=== PATIENT | female | born 1975 | race Hispanic/Latino ===

== ENCOUNTER 2017-05-02 18:20 | Emergency (ER) | payer SELFPAY ==
[2017-05-03] MEDS ORDERED: TORADOL IM ONE (00:07)
--- NOTE | 2017-05-03 00:51 | Emergency Department Report ---
ED Back Pain/Injury HPI - General Chief Complaint: Fall Stated Complaint: PELVIC PAIN Time Seen by Provider: 05/02/17 22:49 Source: patient Limitations: No Limitations - History of Present Illness Initial Comments: This is a 41-year-old female nontoxic, well nourished in appearance, no acute signs of distress presents to the ED with c/o of low back pain and bilateral hip pain status post fall. Patient stated 3 days ago she was walking down 4 stairs and trippped and landed on her lower back. Patient denies any trauma to the hips but stated as hip pain status post fall. Patient denies any bladder or bowel instability. Patient denies any dysuria, polyuria, hematuria, flank pain, fever, chills, nausea, vomiting, chest pain or shortness of breath. Patient denies any numbness or tingling. Patient states allergies to NSAIDs but stated he has taken Toradol with no allergies. Past medical history includes psychiatric, neuropathy, sciatica, and thyroid abnormalities. MD Complaint: back pain -: days(s) (3) Similar Symptoms Previously: Yes Place: home Radiation: none Severity: mild Severity scale (0 -10): 8 Quality: aching Consistency: constant Improves With: immobilization, supine, sitting upright Worsens With: movement, walking Context: fall Associated Symptoms: denies other symptoms. denies: confusion, weakness, chest pain, numbness, difficulty walking, cough, difficulty urinating, diaphoresis, incontinence, fever/chills, constipation, headaches, abdominal pain, loss of appetite, malaise, nausea/vomiting, rash, seizure, shortness of breath, syncope - Related Data Home Medications Medication Instructions Recorded Confirmed Last Taken Carisoprodol [Soma] 350 mg PO PRN PRN 09/02/13 09/02/13 08/30/13 Citalopram [celeXA] 20 mg PO QDAY 09/02/13 09/02/13 09/01/13 Levothyroxine [Synthroid] 50 mcg PO DAILY 09/02/13 09/02/13 09/01/13 Previous Rx's Medication Instructions Recorded Last Taken Type Nitrofurantoin [place]/M-Cryst 100 mg PO Q12HR 14 Days capsule 09/02/13 Unknown Rx [Macrobid] Citalopram [celeXA] 20 mg PO QDAY #30 tablet 10/20/13 Unknown Rx Cyclobenzaprine [Flexeril 10mg] 10 mg PO Q8H PRN #21 tablet 10/20/13 Unknown Rx Levothyroxine [Synthroid] 75 mcg PO QAM #90 tablet 10/20/13 Unknown Rx traMADol [Ultram 50 MG tab] 50 mg PO Q8H PRN #30 tablet 11/10/13 Unknown Rx Cyclobenzaprine [Flexeril 10mg] 10 mg PO TID PRN #20 tablet 12/09/13 Unknown Rx HYDROcodone/APAP 5-325 [Bromide 1 each PO Q6HR PRN #14 tablet 12/09/13 Unknown Rx 5/325] Levofloxacin [Levaquin] 250 mg PO QDAY #2 tablet 08/04/15 Unknown Rx Acetaminophen [Tylenol Arthritis] 650 mg PO Q8H PRN #30 tablet.er 05/03/17 Unknown Rx Cyclobenzaprine [Flexeril] 10 mg PO QHS PRN #7 tablet 05/03/17 Unknown Rx Allergies Allergy/AdvReac Type Severity Reaction Status Date / Time NSAIDS (Non-Steroidal Allergy Nausea Verified 09/02/13 01:54 Anti-Inflamma ED Review of Systems ROS: Stated complaint: PELVIC PAIN Other details as noted in HPI Constitutional: denies: chills, fever Eyes: denies: eye pain, eye discharge, vision change ENT: denies: ear pain, throat pain Respiratory: denies: cough, shortness of breath, wheezing Cardiovascular: denies: chest pain, palpitations Endocrine: no symptoms reported Gastrointestinal: denies: abdominal pain, nausea, diarrhea Genitourinary: denies: urgency, dysuria, discharge Musculoskeletal: back pain. denies: joint swelling, arthralgia Skin: denies: rash, lesions Neurological: denies: headache, weakness, paresthesias Psychiatric: denies: anxiety, depression Hematological/Lymphatic: denies: easy bleeding, easy bruising ED Past Medical Hx - Past Medical History Hx Psychiatric Treatment: Yes (paranoid schitzophrenia) Additional medical history: neuropathy, PUD, sciatica, thyroid problems - Surgical History Hx Cholecystectomy: Yes Additional Surgical History: tubal ligation - Social History Smoking Status: Current Every Day Smoker Substance Use Type: None - Medications Home Medications: Home Medications Medication Instructions Recorded Confirmed Last Taken Type Carisoprodol [Soma] 350 mg PO PRN PRN 09/02/13 09/02/13 08/30/13 History Citalopram [celeXA] 20 mg PO QDAY 09/02/13 09/02/13 09/01/13 History Levothyroxine [Synthroid] 50 mcg PO DAILY 09/02/13 09/02/13 09/01/13 History Nitrofurantoin [place]/M-Cryst 100 mg PO Q12HR 14 Days capsule 09/02/13 Unknown Rx [Macrobid] Citalopram [celeXA] 20 mg PO QDAY #30 tablet 10/20/13 Unknown Rx Cyclobenzaprine [Flexeril 10mg] 10 mg PO Q8H PRN #21 tablet 10/20/13 Unknown Rx Levothyroxine [Synthroid] 75 mcg PO QAM #90 tablet 10/20/13 Unknown Rx traMADol [Ultram 50 MG tab] 50 mg PO Q8H PRN #30 tablet 11/10/13 Unknown Rx Cyclobenzaprine [Flexeril 10mg] 10 mg PO TID PRN #20 tablet 12/09/13 Unknown Rx HYDROcodone/APAP 5-325 [Bromide 1 each PO Q6HR PRN #14 tablet 12/09/13 Unknown Rx 5/325] Levofloxacin [Levaquin] 250 mg PO QDAY #2 tablet 08/04/15 Unknown Rx Acetaminophen [Tylenol Arthritis] 650 mg PO Q8H PRN #30 tablet.er 05/03/17 Unknown Rx Cyclobenzaprine [Flexeril] 10 mg PO QHS PRN #7 tablet 05/03/17 Unknown Rx ED Physical Exam - General Limitations: No Limitations General appearance: alert, in no apparent distress - Head Head exam: Present: atraumatic, normocephalic - Eye Eye exam: Present: normal appearance, PERRL, EOMI Pupils: Present: normal accommodation - ENT ENT exam: Present: normal exam, normal orophraynx, mucous membranes moist, TM's normal bilaterally, normal external ear exam - Neck Neck exam: Present: normal inspection, full ROM. Absent: tenderness, meningismus, lymphadenopathy, thyromegaly - Respiratory Respiratory exam: Present: normal lung sounds bilaterally. Absent: respiratory distress, wheezes, rales, rhonchi, stridor, chest wall tenderness, accessory muscle use, decreased breath sounds, prolonged expiratory - Cardiovascular Cardiovascular Exam: Present: regular rate, normal rhythm, normal heart sounds. Absent: bradycardia, tachycardia, irregular rhythm, systolic murmur, diastolic murmur, rubs, gallop - GI/Abdominal GI/Abdominal exam: Present: soft, normal bowel sounds. Absent: distended, tenderness, guarding, rebound, rigid, diminished bowel sounds - Rectal Rectal exam: Present: deferred - Extremities Exam Extremities exam: Present: normal inspection, full ROM, normal capillary refill. Absent: tenderness, pedal edema, joint swelling, calf tenderness - Expanded Lower Extremity Exam Left Hip exam: Present: normal inspection (bilateral exam), full ROM, external rotation, internal rotation, pelvic stability. Absent: tenderness, swelling, abrasion, laceration, ecchymosis, deformity, crepidus, dislocation, erythema, shortening Upper Leg exam: Present: normal inspection (bilateral exam), full ROM. Absent: tenderness, swelling, abrasion, laceration, ecchymosis, deformity, crepidus, dislocation, erythema Knee exam: Present: normal inspection (bilateral exam), full ROM, full knee extension. Absent: tenderness, swelling, abrasion, ecchymosis, deformity, crepidus, dislocation, erythema, effusion, pain w/ pronation/supination, posterior draw sign, pain/laxity with valgus, pain/laxity with varus Lower Leg exam: Present: normal inspection (bilateral exam), full ROM. Absent: tenderness, swelling, abrasion, laceration, ecchymosis, deformity, crepidus, dislocation, erythema, palpable cord, Abhishek's sign Ankle exam: Present: normal inspection (bilateral exam), full ROM. Absent: tenderness, swelling, abrasion, laceration, ecchymosis, deformity, crepidus, dislocation, erythema, anterior draw sign Foot/Toe exam: Present: normal inspection (bilateral exam), full ROM. Absent: tenderness, swelling, abrasion, laceration, ecchymosis, deformity, crepidus, dislocation, erythema, amputation, puncture wound, foreign body, calcaneal tenderness, tenderness at base of 5th metatarsal, nail avulsion, subungual hematoma Neuro vascular tendon exam: Present: no vascular compromise (bilateral exam). Absent: pulse deficit, abnormal cap refill, motor deficit, sensory deficit, tendon deficit, extremity cold to touch, pallor, abnormal 2-point discrimination , decreased fine/light touch, foot drop, peroneal nerve deficit, significant pain with passive ROM of distal joint Gait: Positive: observed and normal (bilateral exam) - Back Exam Back exam: Present: normal inspection, full ROM, paraspinal tenderness (lumbar region). Absent: tenderness, CVA tenderness (R), CVA tenderness (L), muscle spasm, vertebral tenderness, rash noted - Expanded Back Exam Expanded Back exam: Present: normal rectal tone. Absent: saddle anesthesia Back exam: Negative Straight Leg Raising: Left, Right - Neurological Exam Neurological exam: Present: alert, oriented X3, CN II-XII intact, normal gait, reflexes normal - Psychiatric Psychiatric exam: Present: normal affect, normal mood - Skin Skin exam: Present: warm, dry, intact, normal color. Absent: rash ED Course Vital Signs 05/02/17 05/03/17 21:12 02:00 Temperature 97.8 F 98.4 F Pulse Rate 83 72 Respiratory 20 20 Rate Blood Pressure 98/65 Blood Pressure 114/63 [Right] O2 Sat by Pulse 99 98 Oximetry - Reevaluation(s) Reevaluation #1: 05/03/17 00:51 Patient is speaking in full sentences with no signs of distress noted. ED Medical Decision Making - Medical Decision Making This is a 41-year-old presents with low back strain and bilateral hip pain. Patient is stable and was examined by me. X-ray has been obtained and dictated by radiologist. Patient notified of x-ray results with no questionable by the patient. Patient received 30 mg of Toradol IM which patient states symptoms is improving and subsiding. Negative findings of cauda equina syndrome upon exam. Patient is discharged with Flexeril and Tylenol. Patient was instructed Follow-up with a primary care doctor in 3-5 days or if symptoms worsen and continue return to emergency room as soon as possible. At time of discharge, the patient does not seem toxic or ill in appearance. No acute signs of distress noted. Patient agrees to discharge treatment plan of care. No further questions noted by the patient. Critical care attestation.: If time is entered above; I have spent that time in minutes in the direct care of this critically ill patient, excluding procedure time. ED Disposition Clinical Impression: Bilateral hip pain Low back strain Qualifiers: Encounter type: initial encounter Qualified Code(s): S39.012A - Strain of muscle, fascia and tendon of lower back, initial encounter Fall Qualifiers: Encounter type: initial encounter Qualified Code(s): W19.XXXA - Unspecified fall, initial encounter Disposition: TO HOME OR SELFCARE Is pt being admited?: No Does the pt Need Aspirin: No Condition: Stable Instructions: Acetaminophen (By mouth), Cyclobenzaprine (By mouth), Low Back Strain (ED), Arthralgia (ED) Additional Instructions: Follow-up with your primary care doctor in 3-5 days or if symptoms worsen such as bladder or bowel stability, chest pain, short of breath, numbness or tingling sensation in extremities, headache, dizziness, visual changes, nausea vomiting, or abdominal pain, return back to emergency room as was possible. Take ibuprofen and Flexeril as prescribed. Do not operate heavy machinery while taking Flexeril due to sedation Prescriptions: Cyclobenzaprine [Flexeril] 10 mg PO QHS PRN #7 tablet PRN Reason: Muscle Spasm Acetaminophen [Tylenol Arthritis] 650 mg PO Q8H PRN #30 tablet.er PRN Reason: Pain Referrals: PRIMARY CARE, [Primary Care Provider] - 3-5 Days CHRISTIANA WATTS MD [Staff Physician] - 3-5 Days [facility] [Outside] - 3-5 Days [facility] [Outside] - 3-5 Days Forms: Work/School Release Form(ED)
--- NOTE | 2017-05-03 00:54 | XRay Report ---
FINAL REPORT EXAM: XR SPINE SACRUM/COCCYX 2+V HISTORY: pain s/p fall COMPARISON: None available. FINDINGS: Three views of the sacrum coccyx obtained. Bilateral SI joints are preserved. Normal segmentation the sacrum coccyx on the lateral view. IMPRESSION: No focal bony findings.
--- NOTE | 2017-05-03 00:56 | XRay Report ---
FINAL REPORT EXAM: XR SPINE LUMBOSACRAL 2-3V HISTORY: back pain s/p fall COMPARISON: None available. FINDINGS: Three views of the lumbar spine obtained. Lumbar vertebral body heights and disc heights are preserved. Pedicles are intact. No spondylolisthesis. Surgical clips right upper quadrant. IMPRESSION: Lumbar vertebral body heights and disc heights are preserved.
--- NOTE | 2017-05-03 01:00 | XRay Report ---
FINAL REPORT EXAM: XR HIPS BILAT 2V W/PELVIS HISTORY: hip pain jennifer s/p fall COMPARISON: None available. FINDINGS: AP view of the pelvis and frogleg views of the bilateral hips obtained. Pelvic ring is intact. Bilateral hip and SI joint spaces are preserved. No acute fracture dislocation. IMPRESSION: No acute bony abnormality.
[2017-05-03 03:09] VITALS: BP 114/63
== END 2017-05-03 02:00 | disposition home or self-care (01) ==
LOC: ED 18:20
DX: S39.012A Strain of muscle, fascia and tendon of lower back, initial encounter (principal); M25.552 Pain in left hip; M25.551 Pain in right hip; F17.200 Nicotine dependence, unspecified, uncomplicated; F20.0 Paranoid schizophrenia; Z88.6 Allergy status to analgesic agent; Z90.49 Acquired absence of other specified parts of digestive tract; Z98.51 Tubal ligation status; W10.8XXA Fall (on) (from) other stairs and steps, initial encounter; Y93.01 Activity, walking, marching and hiking; Y92.89 Other specified places as the place of occurrence of the external cause; Y99.8 Other external cause status
CPT/HCPCS: 72100; 72220; 73521; 96372; 99283; J1885